=== PATIENT | female | born 1975 | race Caucasian/White ===

== ENCOUNTER 2019-08-11 10:38 | Emergency (ER) | payer BC ==
[2019-08-11 11:23] LABS: Bacteria/HPF 2+ HPF (None Seen); Bilirubin Negative (Negative); Blood, Urine 2+ (Negative); Clarity Turbid (Clear); Glucose, Urine (Dipstick) Normal (Negative); Leukocyte 500 Leu/uL (Negative); Nitrite Negative (Negative); Protein, Urine (Dipstick) 10 mg/dL (Neg-Trace); Squamous Epithelial 21-50 HPF (0-3); Urobilinogen Normal mg/dL (Less than 2); WBC/HPF 21-50 HPF (0-3)
[2019-08-11 11:24] LABS: Pregnancy Test - Urine (BHCG) Negative (Negative); Specific Gravity 1.027 (1.002-1.036)
[2019-08-11 11:25] LABS: Pregu Control Background? CLEAR/WHITE (CLR/WHITE); Pregu Control Bar Appear? YES (CONTROL BAR)
[2019-08-11 11:42] LABS: #Basophils 0.1 thou/uL (0.0-0.2); #Eosinphils 0.3 thou/uL (0.0-0.7); #Lymphocytes 3.6 thou/uL (1.20-3.40); #Monocytes 0.7 thou/uL (0.11-0.59); #Neutrophils 6.2 thou/uL (1.40-6.50); %Basophils 1.1 % (0.0-1.0); %Eosinophils 3.1 % (0.0-10.0); %Lymphocytes 33.2 % (21.0-51.0); %Monocytes 6.4 % (0.0-10.0); %Neutrophils 56.4 % (42.0-75.0); Hemoglobin 13.4 g/dL (12.0-16.0); Mean Corpuscular HGB CONC 33.9 g/dL (32.0-36.0); Mean Corpuscular Hemoglobin 29.8 pg (27.0-31.0); Mean Corpuscular Volume 88.1 fL (78.0-98.0); Mean Platelet Volume 7.2 fL (7.4-10.4); Platelet Count 329 thou/uL (130-400); RBC Distribution Width 11.7 % (11.5-14.5); Red Blood Cell (RBC) Count 4.49 mill/uL (4.20-5.40); White Blood Cell (WBC) Count 10.9 thou/uL (4.8-10.8)
--- NOTE | 2019-08-11 11:48 | RAD ---
Chest AP view INDICATION: Chest pain COMPARISON: None FINDINGS: Lungs:The lungs are clear Cardiac silhouette:The cardiomediastinal silhouette appears within normal limits. Pulmonary vasculature:Normal Pleural spaces:No pleural effusion or pneumothorax is demonstrated. Upper abdomen:No abnormality seen. Osseous structures: Mild thoracic scoliosis Additional findings:None. IMPRESSION: No acute cardiopulmonary abnormality.
[2019-08-11 11:50] LABS: BHCG - Serum Negative (NEGATIVE); Pregs Control Background? CLEAR/WHITE (CLR/WHITE); Pregs Control Bar Appear? YES (CONTROL BAR)
[2019-08-11 12:03] LABS: ALT (SGPT) 43 U/L (8-55); AST (SGOT) 49 U/L (5-34); Albumin 4.1 g/dL (3.5-5.0); Alkaline Phosphatase 93 U/L (40-110); Anion Gap 15 mmol/L (10-20); BUN (Urea Nitrogen) 11 mg/dL (7.0-18.7); Bilirubin, Total 0.4 mg/dL (0.2-1.2); CK (CPK) 108 U/L (29-168); Calc. Creatinine Clearance 0 mL/min (70-130); Calcium 9.2 mg/dL (7.8-10.44); Carbon Dioxide 19 mmol/L (22-29); Chloride 105 mmol/L (98-107); Estimated GFR-MDRD 77; Globulin 3.6 g/dL (2.4-3.5); Glucose 114 mg/dL (70-105); Lipase 21 U/L (8-78); Potassium 5.2 mmol/L (3.5-5.1); Protein, Total 7.7 g/dL (6.0-8.3); Sodium 134 mmol/L (136-145)
--- NOTE | 2019-08-14 16:14 | EKG ---
Test Reason : Blood Pressure : / mmHG Vent. Rate : 074 BPM Atrial Rate : 074 BPM P-R Int : 136 ms QRS Dur : 074 ms QT Int : 394 ms P-R-T Axes : 044 032 051 degrees QTc Int : 437 ms Normal sinus rhythm Nonspecific ST abnormality Abnormal ECG Confirmed by JENNIFER LEZAMA, ISRA ([id number]), web editor ELISA BUSH ([id number]) on 08/14/2019 4:13:03 PM Referred By: Confirmed By:ISRA RODRIGUEZ MD
== END 2019-08-11 12:34 | disposition home or self-care (01) ==
LOC: ERS 10:38
DX: N39.0 Urinary tract infection, site not specified (principal); Z79.899 Other long term (current) drug therapy; Z79.84 Long term (current) use of oral hypoglycemic drugs
CPT/HCPCS: 36415; 71045; 80053; 81003; 81015; 81025; 82550; 83690; 83880; 84484; 84703; 85025; 85379; 93005

== ENCOUNTER 2020-05-18 07:36 | Day surgery (SDC) | payer BC ==
[2020-05-13 14:16] VITALS: BMI 48.0
[2020-05-18] MEDS ORDERED: AFRIN NASAL MIST 15 ML BOT ONE ×2 (08:29→09:28)
[2020-05-18] MEDS ORDERED: Lidocaine 1% w/Epinephrine 1:100K 20 ML VIAL ONE (09:28)
[2020-05-18] MEDS ORDERED: Bacitracin Zinc Ointment 30 gm TUBE ONE (09:28)
[2020-05-18] MEDS ORDERED: Famotidine/PF 20 mg/2ml Vial ONE (09:29)
[2020-05-18] MEDS ORDERED: Meperidine HCl/PF 25 MG/ML VIAL ONE (09:29)
[2020-05-18] MEDS ORDERED: Fentanyl 100 MCG/2 ML VIAL ONE ×2 (09:29→11:27)
[2020-05-18] MEDS ORDERED: Dexamethasone 20 MG/5 ML VIAL ONE (09:47)
[2020-05-18] MEDS ORDERED: PROPOFOL 200 MG/20 ML VIAL ONE (09:47)
[2020-05-18] MEDS ORDERED: Ondansetron PF 4 MG/2 ML Vial ONE (09:47)
[2020-05-18] MEDS ORDERED: Metoclopramide 10 MG/10 ML UDCUP ONE (09:47)
[2020-05-18] MEDS ORDERED: Lidocaine 1% PF 5 ML VIAL ONE (09:47)
[2020-05-18] MEDS ORDERED: hydrALAZINE 20 MG/ML VIAL ONE (11:14)
[2020-05-18] MEDS ORDERED: Metoprolol Tartrate 5 MG/5 ML VIAL ONE (12:01)
--- NOTE | 2020-05-19 08:08 | OP ---
DATE OF PROCEDURE: 05/18/2020 PREOPERATIVE DIAGNOSES: 1. Chronic rhinosinusitis. 2. Nasal polyposis. 3. Allergic fungal sinusitis. 4. Nasal septal deviation. 5. Bilateral inferior turbinate hypertrophy. 6. Bilateral nasal valve collapse. POSTOPERATIVE DIAGNOSES: 1. Chronic rhinosinusitis. 2. Nasal polyposis. 3. Allergic fungal sinusitis. 4. Nasal septal deviation. 5. Bilateral inferior turbinate hypertrophy. 6. Bilateral nasal valve collapse. PROCEDURES PERFORMED: 1. Bilateral endoscopic sinus surgery, total ethmoidectomies and sphenoidotomies with removal of tissue. 2. Bilateral endoscopic sinus surgery, maxillary antrostomy with removal of tissue. 3. Bilateral endoscopic sinus surgery, frontal sinus exploration with removal of tissue. 4. Bilateral repair of lateral nasal wall. 5. Nasoseptoplasty. 6. Bilateral inferior turbinate submucosal resection. 7. Landmar[employer] image guided craniofacial navigational surgery. ESTIMATED BLOOD LOSS: 50 mL. COMPLICATIONS: None. ANESTHESIA: GETA. DESCRIPTION OF PROCEDURE: The patient was taken to the operating room and placed supine on the table. General endotracheal anesthesia was obtained by the Anesthesia Staff. Tube was secured in the left lower lip. The patient is placed in a beach-chair position, was prepped and draped for standard nasal procedure. Following this, the Spotie image-guided system was then set up and calibrated, was noted to be within 1 to 2 mm of accuracy. Following this, all instrumentation used was under navigational guidance. Patient was taken to the operating room and placed supine on the table. General endotracheal anesthesia was obtained by the anesthesia staff. Then 1% lidocaine with 1:100,000 epinephrine was injected into the nasal septum as well as the inferior turbinates. The patient was prepped and draped in standard surgical fashion. The Afrin pledgets were then removed. A Russel incision was made on the left nasal septum. Submucoperichondrial dissection was performed bilaterally of the deviated portions of the septum, which included the maxillary crest and the crest deviation, as well as the mid portion of the septum. Cartilage and bony deviation was removed, leaving a generous caudal and dorsal strut. Any straight pieces of cartilage were then placed within the cartilage press, pressed, straightened, and then placed between the mucoperichondrial flaps, which were then closed using a 4-0 gut stitch. The inferior turbinates were then punctured with the submucosal Coblation machine, and 3 separate coblations were delivered to the anterior inferior portion of the inferior turbinates. Following this, the nasal cavity was irrigated. All debris was removed. An orogastric tube was placed. Gastric contents and Cunha splints were then placed in the nasal cavity and sutured with a 3-0 silk stitch. Following this, nasal polyps, which were completely obstructing the right nasal cavity and partially obstructing the left nasal cavity were injected with 1% lidocaine with 1:100,000 epinephrine. The polyps were removed in order to even visualize the lateral nasal wall structures using the 0-degree microdebrider and straight Blakesley forceps. Nasal polyps were actually protruding into the nasopharynx and into the oropharynx bilaterally. These polyps were removed through the nose after debriding the polyps. Following this, middle turbinates were visualized and were gently medialized using a Forbes elevator. The uncinate process was anteriorly fractured bilaterally using the 0-degree microdebrider and up-biting Blakesley forceps bilaterally. Following this, the natural maxillary sinus ostia was identified using the image-guided system along with 40-degree microdebrider blade and the maxillary antrostomies was created bilaterally using the microdebrider. Large polyps were removed from the maxillary sinuses. Following this, the ethmoidal bulla was identified and was punctured on its medial and inferior aspect using the 0-degree microdebrider. Following this, ethmoidal bulla was removed using the microdebrider and Blakesley forceps bilaterally. Following this, the grand lamella was identified and was punctured into the posterior ethmoidal cells using the 0-degree microdebrider and the image-guided system. The nasal polyps were removed throughout this ethmoidal area. Following this, the anterior wall of the sphenoid sinus was identified through the previous ethmoidectomies using the image-guided system and a sphenoidotomy was created bilaterally using 0-degree microdebrider. The sphenoidotomy was widened in a medial and inferior direction. Nasal polyps and purulent debris were removed from the sphenoid sinuses bilaterally. Following this, a 45-degree endoscope along with the 40-degree microdebrider blade was used to identify and widen the frontal sinus ostia bilaterally under navigation guidance. Nasal polyps and allergic fungal debris were removed from the frontal sinuses. Following this, the nasal cavity was irrigated. NasoPore packing was placed within the middle meatus bilaterally and a small incision was made in a transcartilaginous approach to the lateral nasal wall bilaterally. A subperiosteal pocket was created overlying the nasal bones bilaterally and a graft was placed supporting the nasal bones and supporting the collapsed lower lateral cartilages, which had been rearranged for large polyp growth. The incision was closed using 5-0 chromic gut stitch. The patient tolerated the procedure well. Job ID: [id number]
== END 2020-05-18 13:50 | disposition home or self-care (01) ==
LOC: SDC 07:36
PROVIDERS: ATTEND Otolaryngology Plastic Surgery within the Head & Neck
PROC: 09TV8ZZ Resection of Left Ethmoid Sinus, Via Natural or Artificial Opening Endoscopic (ICD-10-PCS; principal; 2020-05-18)
PROC: 09BX8ZZ Excision of Left Sphenoid Sinus, Via Natural or Artificial Opening Endoscopic (ICD-10-PCS; principal; 2020-05-18)
PROC: 09BQ8ZZ Excision of Right Maxillary Sinus, Via Natural or Artificial Opening Endoscopic (ICD-10-PCS; principal; 2020-05-18)
PROC: 09QK0ZZ Repair Nasal Mucosa and Soft Tissue, Open Approach (ICD-10-PCS; principal; 2020-05-18)
PROC: 09SM0ZZ Reposition Nasal Septum, Open Approach (ICD-10-PCS; principal; 2020-05-18)
PROC: 09BS8ZZ Excision of Right Frontal Sinus, Via Natural or Artificial Opening Endoscopic (ICD-10-PCS; principal; 2020-05-18)
PROC: 09BR8ZZ Excision of Left Maxillary Sinus, Via Natural or Artificial Opening Endoscopic (ICD-10-PCS; principal; 2020-05-18)
PROC: 09BT8ZZ Excision of Left Frontal Sinus, Via Natural or Artificial Opening Endoscopic (ICD-10-PCS; principal; 2020-05-18)
PROC: 8E09XBZ Computer Assisted Procedure of Head and Neck Region (ICD-10-PCS; principal; 2020-05-18)
PROC: 09BW8ZZ Excision of Right Sphenoid Sinus, Via Natural or Artificial Opening Endoscopic (ICD-10-PCS; principal; 2020-05-18)
PROC: 09TL0ZZ Resection of Nasal Turbinate, Open Approach (ICD-10-PCS; principal; 2020-05-18)
PROC: 09TU8ZZ Resection of Right Ethmoid Sinus, Via Natural or Artificial Opening Endoscopic (ICD-10-PCS; principal; 2020-05-18)
DX: J32.4 Chronic pansinusitis (principal); J30.89 Other allergic rhinitis; J33.8 Other polyp of sinus; J34.2 Deviated nasal septum; J34.3 Hypertrophy of nasal turbinates; J34.89 Other specified disorders of nose and nasal sinuses; R73.03 Prediabetes; E78.00 Pure hypercholesterolemia, unspecified; Z79.84 Long term (current) use of oral hypoglycemic drugs; Z79.899 Other long term (current) drug therapy
CPT/HCPCS: 88305; J0360; J1100; J2175; J2405; J2704; J3010; S0028

== ENCOUNTER 2023-05-08 15:30 | Outpatient (CLI) | payer BC | END 2023-05-08 15:31 | disposition home or self-care (01) | LOC: BICMAMMO 15:30 | PROVIDERS: ATTEND Physician Assistant | DX: Z12.31 Encounter for screening mammogram for malignant neoplasm of breast (principal) | CPT/HCPCS: 77063; 77067 ==

== ENCOUNTER 2025-09-03 08:44 | Outpatient (CLI) | payer BC | END 2025-09-03 08:45 | disposition home or self-care (01) | LOC: MRI 08:44 | PROVIDERS: ATTEND Physician Assistant Medical | DX: K76.0 Fatty (change of) liver, not elsewhere classified (principal); R16.0 Hepatomegaly, not elsewhere classified | CPT/HCPCS: 74183 ==